=== PATIENT | male | born 2005 | race Caucasian/White ===

== ENCOUNTER 2023-06-23 21:45 | Emergency (ER) | payer OTHER ==
[2023-06-23] MEDS ORDERED: Boostrix 0.5 ML (Tdap) VIAL (>/=7 yrs of age) ONE (22:07)
[2023-06-23] MEDS ORDERED: Bacitracin 1 PK ONE (22:11)
== END 2023-06-23 22:53 | disposition home or self-care (01) ==
LOC: CSHERS 21:45
DX: S61.012A Laceration without foreign body of left thumb without damage to nail, initial encounter (principal); Z23 Encounter for immunization; W26.0XXA Contact with knife, initial encounter
CPT/HCPCS: 12002; 90471; 90715

== ENCOUNTER 2023-06-30 21:57 | Emergency (ER) | payer OTHER | END 2023-07-01 01:32 | disposition home or self-care (01) | LOC: CSHERS 21:57 | DX: S61.011D Laceration without foreign body of right thumb without damage to nail, subsequent encounter (principal); W26.0XXD Contact with knife, subsequent encounter ==